=== PATIENT | male | born 1955 | race Caucasian/White ===

== ENCOUNTER 2017-04-02 05:56 | Inpatient (IN) | payer MEDICAID, OTHER ==
[~2017-04-02] VITALS: Ht 177.8 cm; Wt 110.0 kg
[2017-04-02] VITALS (9 sets, daily range): BP systolic 129–169; BP diastolic 62–71; PULSE 67–77; RESP 16–18; TEMP 97.5–98.6; O2SAT 91–96
[~2017-04-02 05:56] MED LIST: ALBU0.63 NEB; AMLO10TA2 PO; ASPI81TA11 PO; CEPH500T PO; CYCL1TAB29 PO; GABA600T PO; HYDR-3516 PO; HYDR50TA3 PO; IPRA17I INH; LABE200T2 PO; LISI40TA PO; PRAV40TA2 PO; SPIRCAP INH; SYMB160A INH; VENTAER INH
[2017-04-02] MEDS ORDERED: SODIUM CHLORID 0.9% 500 ML IV PRN (06:30)
[2017-04-02] MEDS ORDERED: INSULIN HUMAN REGULAR 1,000 UNITS/10 ML VIAL SQ PRN (06:30)
[2017-04-02] MEDS ORDERED: POVIDONE IODINE 5% (ANTISEPSIS KIT) 4 APPLICATIONS EACH NARE PRN (06:30)
[2017-04-02] MEDS ORDERED: METOPROLOL TARTRATE 25 MG TAB PO PRN (06:30)
[2017-04-02] MEDS ORDERED: LACTATED RINGER'S 1000 ML IV PRN (06:30)
[2017-04-02] MEDS ORDERED: CHLORHEXIDINE GLUCONATE 2 % 1 PACK (2 CLOTHS) TOPICAL PRN (06:30)
[2017-04-02] MEDS: PROTAMINE SULFATE 50 MG/5 ML VIAL ONE ×2 (06:36→11:11)
[2017-04-02] MEDS ORDERED: THROMBIN (TOPICAL) 20,000 UNIT SPRAY KIT ONE (06:36)
[2017-04-02] MEDS ORDERED: HEPARIN SODIUM - IV 10,000 UNITS/10 ML VIAL ONE (06:36)
[2017-04-02] MEDS: BUPIVACAINE HCL PF 0.5% 30 ML VIAL ONE ×2 (06:36→11:40)
[2017-04-02] MEDS ORDERED: HEPARIN-NS/PF INJ 1,000 ML ONE (06:37)
--- NOTE | 2017-04-02 06:50 | PD.VS.PN ---
Pre-operative Note Pre-operative diagnosis: chronic type B aortic dissection Planned procedure: L C-SC bypass TEVAR Interval History: Pt has been feeling well since I saw him in clinic. He is appropriately anxious but ready. Labs: pending Blood: T&S Imaging: CTA reviewed. Orders: NPO Kefzol 2g IV OCTOR Post-operative destination: CVICU Operative site marked: Yes Consent: Informed consent has been obtained from Alejandro Robin. I have explained the procedure in detail and discussed the risks, benefits, and potential complications. All questions have been answered. Javy Cherry MD Apr 02, 2017 06:50
--- NOTE | 2017-04-02 07:02 | RADRPT ---
EXAM DATE/TIME: 04/02/2017 06:43 [facility] COMPARISON: No previous studies available for comparison. INDICATIONS : Shortness of breath. Pre-op subclavian bypass. MEDICAL HISTORY : None. SURGICAL HISTORY : None. ENCOUNTER: Initial ACUITY: 1 day PAIN SCORE: 0/10 LOCATION: Bilateral chest FINDINGS: The cardiac silhouette is normal in transverse diameter. The lungs are free of acute parenchymal opac ity. No effusions are identified. The aortic knob is prominent with tortuosity of the descending thor acic aorta. There is mild scoliotic deformity convex to the right. CONCLUSION: 1. No acute cardiopulmonary disease. Alejandro Lazcano MD on April 02, 2017 at 6:59 Board Certified Radiologist. This report was verified electronically.
[2017-04-02] MEDS ORDERED: MIDAZOLAM HCL 2 MG/2 ML VIAL ONE (07:19)
[2017-04-02] MEDS ORDERED: RESP: ALBUTEROL 0.63 MG/3 ML NEB (PRN) NEB (07:30)
[2017-04-02] MEDS ORDERED: IPRATROPIUM BROMIDE 17 MCG/ACT 12.9 GM INHALER INH PRN (07:30)
--- NOTE | 2017-04-02 07:41 | PD.RAD ---
Post Procedure Progress Note Pre Procedure Diagnosis: (1) Thoracic aortic aneurysm Post Procedure Diagnosis: (1) Thoracic aortic aneurysm Procedure Date: Apr 02, 2017 Supervising Radiologist: Mansoor Solo Estimated blood loss: none Anesthesia: Local, Conscious Sedation Plan of Activity Patient to Unit: Other Patient Condition: Good Additional Comments: Lumbar drain placed without difficulty. Neuro exam unchanged post drain placement. Catheter placed at L3 due to degenerative changes at L4 Catheter tip is at T10. Clear CSF draining for the tubing. Full dictated report to follow. See PACS Report for procedural detail/treatment Mansoor Solo MD Apr 02, 2017 07:41
[2017-04-02] MEDS ORDERED: NALOXONE HCL 0.4 MG/ML AMP ONE (07:43)
[2017-04-02] MEDS ORDERED: NITROGLYCERIN-D5W 50 MG/250 ML 250 ML ONE (07:45)
[2017-04-02] MEDS ORDERED: ALBUTEROL SULFATE 90 MCG/ACT HFA 8 GM INHALER INH PRN (08:00)
[2017-04-02] MEDS ORDERED: ceFAZolin 2 GM PREMIX 50 ML ONE (08:22)
[2017-04-02] MEDS: ACETAMINOPHEN 1000 MG/100 ML 100 ML IV ONE ×2 (08:24→10:00)
[2017-04-02] MEDS: methylPREDNISolone SOD SUCC 125 MG/2 ML VIAL ONE ×2 (08:24→08:50)
[2017-04-02] MEDS ORDERED: RESP: IPRATROPIUM 0.5 MG/2.5 ML NEB NEB PRN (09:00)
[2017-04-02] MEDS: HYDROCHLOROTHIAZIDE 50 MG TAB PO SCH (09:00)
[2017-04-02] MEDS: FAMOTIDINE 20 MG TAB PO SCH ×2 (09:00→21:41)
[2017-04-02] MEDS: TIOTROPIUM BROMIDE 18 MCG INH INH SCH (09:00)
[2017-04-02] MEDS: DOCUSATE SODIUM 100 MG CAP PO SCH ×2 (09:00→21:41)
[2017-04-02] MEDS: BUDESONIDE-FORMOTEROL 160/4.5 MCG INHALER INH SCH ×2 (09:00→23:47)
[2017-04-02] MEDS ORDERED: IOHEXOL IV ONE ×2 (09:00→13:00)
--- NOTE | 2017-04-02 09:33 | RADRPT ---
EXAM DATE/TIME: 04/02/2017 06:59 [facility] COMPARISON: No previous studies available for comparison. INDICATIONS : Patient with AAA in need of lumbar drain placement prior to surgery. MEDICAL HISTORY : 1.AAA 2.Aortic dissection 3.Arthritis 4.Asthma 5.Benign essential hypertension 6.Chronic obstructive lung disease 7.GERD 8.Hyperlipidemia 9.Hypoxemia 10.Knee pain 11.Morbid obesity 12.Sleep apnea 13.Prediabetes SURGIAL HISTORY : 1.Hernia repair ENCOUNTER: Initial ACUITY: 1 month PAIN SCORE: 6/10 LOCATION: Upper chest. LUMBAR PUNCTURE TIME: 0728 hours FLUORO TIME: 2.4 minutes IMAGE SERIES: 1 SEDATION TIME: 8 minutes LEVEL: Tip of lumbar drain was placed at T10 MEDICATION(S): 1.) 2 mg midazolam (Versed) IV 2.) 100 mcg fentanyl (Sublimaze) IV DEVICE(S): 1.) 5 Azeri lumbar drain catheter PROCEDURE : 1. Fluoroscopically guided lumbar drain placement. 2. Conscious sedation with continuous EKG and oximetry monitoring. Clinical history: The patient is a 62-year-old with a thoracic aortic aneurysm. The patient is scheduled for endograft repair of the aneurysm. We are asked to place a lumbar drain preoperatively. The risks, benefits and alternatives to the procedure were explained and verbal and written consent w as obtained. The site was prepped in sterile fashion. Full sterile technique was used, including ca p, mask, sterile gloves and gown and a large sterile sheet. Hand hygiene and 2% chlorhexidine and/or betadine/alcohol prep was utilized per protocol for cutaneous antisepsis. The skin and subcutaneous tissues were infiltrated with local anesthetic solution. The patient's back was examined with fluoroscopy. There was considerable degenerative change at the L 4 level. The decision was made to place the drain at the level of L3. With fluoroscopic guidance the lumbar thecal sac was punctured with a 14 gauge Touhy needle and a lum bar drain was placed with its tip at the level of T10 and the catheter was sutured in place. CSF was identified returning from the catheter at the termination of the procedure. Conscious sedation was performed with the prescribed dosages and duration as above in the presence of an independent trained radiology nurse to assist in the monitoring of the patient. EKG and oximetry remained stable throughout the procedure. The patient tolerated the procedure well and there were n o complications. The patient was sent to post anesthesia recovery in stable condition. CONCLUSION: Uncomplicated lumbar drain placement as above. The tip of the catheter is at the level of T10. The karla flood's lower extremity neurologic exam was normal post procedure. Mansoor Solo MD on April 02, 2017 at 9:30 Board Certified Radiologist. This report was verified electronically.
[2017-04-02 09:44] LABS: HEMATOCRIT 40.9 % (39.0-51.0); MEAN CELL VOLUME 89.3 FL (80.0-100.0); MEAN CORPUSCULAR HGB CONC 33.6 % (32.0-36.0); PLATELET COUNT 179 TH/MM3 (150-450); RED BLOOD COUNT 4.58 MIL/MM3 (4.50-5.90); RED CELL DISTRIBUTION WIDTH 12.6 % (11.6-17.2); REVIEW FLAG FINAL; WHITE BLOOD COUNT 7.9 TH/MM3 (4.0-11.0)
[2017-04-02] MEDS: HEPARIN SODIUM - IV 10,000 UNITS/10 ML VIAL ONE (09:46)
[2017-04-02 10:17] LABS: BICARBONATE 30.2 MEQ/L (21.0-32.0); POTASSIUM 3.2 MEQ/L (3.5-5.1)
[2017-04-02] MEDS ORDERED: PROTAMINE SULFATE 50 MG/5 ML VIAL IV PUSH ONE (11:11)
[2017-04-02] MEDS ORDERED: PROTAMINE SULFATE 50 MG/5 ML VIAL ONE (11:12)
--- NOTE | 2017-04-02 12:03 | HHI.PR ---
Immediate Post Op Note Procedure Date: Apr 02, 2017 Pre Op Diagnosis: chronic type B aortic dissection Post Op Diagnosis: chronic type B aortic dissection Surgeon: Javy Cherry Child Care Supervisor(s): Shena Carrasco MS4 Procedure: 1. L C-SC bypass with 8mm Dacron 2. TEVAR involving L SCA (Valiant [id number]) 3. L SCA embolization 4. IVUS of aorta 5. L PROFESSOR OF THEATER Perclose 6. R PROFESSOR OF THEATER Angioseal Findings: successful exclusion and no FL filling in thoracic aorta Additional Information: + Doppler signals B LE at conclusion of case Complications: none apparent Specimen(s) removed: none Estimated blood loss: 50mL Anesthesia: General Drains: None Fluids: 2700mL IVF Urinary Output (mLs): 425 Patient to: CVICU Patient Condition: Fair Implant/Devices: SEE IMPLANT LOG (if applicable) Date/Time of Procedure: SEE SURGICAL CARE RECORD Javy Cherry MD Apr 02, 2017 12:03
[2017-04-02] MEDS: ASPIRIN EC 81 MG TABEC PO SCH (13:00)
[2017-04-02] MEDS: D5-1/2 NS + KCL 20 MEQ INJ 1,000 ML IV SCH ×2 (13:06→23:28)
[2017-04-02] MEDS: MORPHINE SULFATE 4 MG/ML INJ IV PUSH PRN ×2 (13:29→21:46)
[2017-04-02 13:52] LABS: AUTOMATED NEUTROPHIL # 10.8 TH/MM3 (1.8-7.7); BASOPHIL % 0.3 % (0.0-2.0); EOSINOPHIL % 0.3 % (0.0-4.0); HEMO FLAGS DIFF FINAL; LYMPH % 9.5 % (9.0-44.0); LYMPHOCYTE # 1.2 TH/MM3 (1.0-4.8); MEAN CELL VOLUME 89.8 FL (80.0-100.0); MEAN CORPUSCULAR HEMOGLOBIN 30.4 PG (27.0-34.0); MEAN CORPUSCULAR HGB CONC 33.8 % (32.0-36.0); MONO % 4.1 % (0.0-8.0); NEUT % 85.8 % (16.0-70.0); PLATELET COUNT 166 TH/MM3 (150-450); RED BLOOD COUNT 4.45 MIL/MM3 (4.50-5.90); RED CELL DISTRIBUTION WIDTH 12.7 % (11.6-17.2); WHITE BLOOD COUNT 12.6 TH/MM3 (4.0-11.0)
[2017-04-02 14:11] LABS: BICARBONATE 31.1 MEQ/L (21.0-32.0); POTASSIUM 3.7 MEQ/L (3.5-5.1)
[2017-04-02] MEDS: NALOXONE 4 MG/D5W 246 ML ADMIX IV SCH ×4 (14:17→23:47)
--- NOTE | 2017-04-02 16:14 | RADRPT ---
EXAM DATE/TIME: 04/02/2017 15:30 [facility] COMPARISON: CHEST SINGLE AP, April 02, 2017, 6:43. INDICATIONS : Post operative chest. Post TEVAR. MEDICAL HISTORY : Arthritis. Gastroesophageal reflux disease. Asthma. AAA SURGICAL HISTORY : Hernia repair. ENCOUNTER: Initial ACUITY: 1 day PAIN SCORE: Non-responsive. LOCATION: Bilateral chest FINDINGS: 3 frontal views of the chest demonstrate a normal-sized cardiac silhouette. There is an endoluminal s tent graft overlying the ascending aorta and aortic arch. Embolization coils overlie the superior asp ect of the aortic arch. Lungs are underinflated with mild atelectasis at the bases. No effusion, cons olidation, or pneumothorax is visualized. Bones demonstrate no acute finding. CONCLUSION: Endoluminal stent graft now overlies the ascending aorta and arch with embolization coils overlying t he superior arch region. Elliott Dumas MD on April 02, 2017 at 16:11 Board Certified Radiologist. This report was verified electronically.
--- NOTE | 2017-04-02 16:31 | PD.CONS ---
[facility] Service Critical Care Medicine Consult Requested By Dr. Cherry Reason for Consult perioperative management of comorbidities Primary Care Physician Non-Staff History of Present Illness This is a 62yM with history of hypertension, CAD and known prior type B dissection which was medically managed but for which the patient had continued chest pain despite maximal medical therapy. He underwent elective endovascular thoracic aortic aneurysm repair (TEVAR) with extra-anatomic left carotid- subclavian bypass. His intra-operative course was uncomplicated and included 2700 mL crystalloid for an EBL of ~50mL and UOP of 425mL. He arrives to the CVICU extubated, arousing from anesthesia, in stable condition. Due to the patient's somnolence arousing from anesthesia, a complete ROS is unobtainable. The patient did deny chest pain, shortness of breath, weakness of his extremities. Review of Systems ROS Limitations: Altered Mental Status ROS arousing from anesthesia. Past Family Social History Allergies: Coded Allergies: No Known Allergies (Unverified , 04/02/17) Past Medical History A complete past history is unobtainable secondary to the clinical condition of the patient. Please refer to Dr. Cherry's admission/clinic H&P for further details. hypertension Type B thoracic dissection Past Surgical History complete PSHx unobtainable secondary to the clinical condition of the patient Reported Medications Aspirin EC (Aspirin) 81 Mg Tabdr 81 Mg PO DAILY Gabapentin 600 Mg Tab 600 Mg PO HS Atrovent HFA 12.9 GM Inh (Ipratropium Pengilly) 17 Mcg/Actuation Aer 2 Puff INH DAILY PRN Symbicort Inh (Budesonide/Formoterol Fumarate) 160-4.5 Mcg/Act Aero 1 Puff INH Q12HR Spiriva Handihaler (Tiotropium Inh) 18 Mcg Cap 18 Mcg INH DAILY 1 capsule = 18 mcg Ventolin Hfa 18 GM Inh (Albuterol Sulfate) 90 Mcg/Act Aer 2 Puff INH Q4H PRN Albuterol Neb (Albuterol Sulfate) 0.63 Mg/3 Ml Neb 0.083 Mg NEB DAILY PRN Flexeril (Cyclobenzaprine HCl) 10 Mg Tab 10 Mg PO HS Hydrocodone-Acetaminophen 5-325 mg Tab 1 Tab PO BID PRN Cephalexin 500 Mg Tab 500 Mg PO Q6H Pravastatin 40 Mg Tab 40 Mg PO HS Hydrochlorothiazide 50 Mg Tab 50 Mg PO DAILY Lisinopril 40 Mg Tab 40 Mg PO DAILY Amlodipine (Amlodipine Besylate) 10 Mg Tab 10 Mg PO HS Labetalol (Labetalol HCl) 200 Mg Tab 400 Mg PO TID Active Ordered Medications See MAR Family History reviewed and found to be noncontributory to his acute illness. Social History reviewed in the chart. unobtainable from the patient due to arousing from anesthesia. please refer to Dr. Cherry's H&P for further details. Physical Exam Vital Signs Vital Signs Date Time Temp Pulse Resp B/P (MAP) Pulse Ox O2 Delivery O2 Flow Rate FiO2 04/02/17 16:09 95 Nasal Cannula 4.00 04/02/17 16:07 67 04/02/17 15:04 97.6 69 16 140/62 (88) 96 04/02/17 13:38 73 04/02/17 13:37 91 Nasal Cannula 5.00 04/02/17 13:35 16 04/02/17 13:35 97.5 72 16 140/62 (88) 91 04/02/17 07:56 Nasal Cannula 3 04/02/17 06:52 98.0 71 20 133/79 (97) 93 Physical Exam GENERAL: Middle-aged male, lying in bed, arousing from anesthesia HEENT: Normocephalic. Atraumatic. Pupils equal, round, reactive, conjugate. Mucous membranes are moist NECK: Trachea is midline. There is no JVD. Incision over left anterior neck is clean, dry, intact with Dermabond. No evidence of hematoma CHEST: Nasal cannula oxygen. Unlabored. Equal chest rise. CARDIOVASCULAR: Normal rate, regular rhythm. Blood pressure is 142 systolic on my evaluation. ABDOMEN: Soft, nontender, nondistended. No guarding. MUSCULOSKELETAL: Pulses 2+. No peripheral edema. Bilateral groin sites without evidence of hematoma, dressing intact NEUROLOGICAL: RASS -2. Arousing from anesthesia. Moves all extremities. Bilateral lower extremity strength 5/5. Laboratory Laboratory Tests Test 04/02/17 09:00 04/02/17 13:00 04/02/17 13:35 White Blood Count 7.9 12.6 Red Blood Count 4.58 4.45 Hemoglobin 13.8 13.5 Hematocrit 40.9 40.0 Mean Corpuscular Volume 89.3 89.8 Mean Corpuscular Hemoglobin 30.0 30.4 Mean Corpuscular Hemoglobin Concent 33.6 33.8 Red Cell Distribution Width 12.6 12.7 Platelet Count 179 166 Mean Platelet Volume 9.2 9.3 Blood Urea Nitrogen 13 13 Creatinine 0.67 0.81 Random Glucose 128 157 Calcium Level 8.8 7.6 Sodium Level 138 138 Potassium Level 3.2 3.7 Chloride Level 100 100 Carbon Dioxide Level 30.2 31.1 Anion Gap 8 7 Estimat Glomerular Filtration Rate 121 97 Neutrophils (%) (Auto) 85.8 Lymphocytes (%) (Auto) 9.5 Monocytes (%) (Auto) 4.1 Eosinophils (%) (Auto) 0.3 Basophils (%) (Auto) 0.3 Neutrophils # (Auto) 10.8 Lymphocytes # (Auto) 1.2 Monocytes # (Auto) 0.5 Eosinophils # (Auto) 0.0 Basophils # (Auto) 0.0 CBC Comment DIFF FINAL Differential Comment Result Diagram: 04/02/17 1300 04/02/17 1335 Imaging Last Impressions Chest X-Ray 04/02/17 0632 Signed Impressions: Service Date/Time: Sunday, April 02, 2017 06:43 - CONCLUSION: 1. No acute cardiopulmonary disease. Alejandro Lazcano MD Lumbar Puncture Fluoroscopy 04/02/17 0000 Signed Impressions: Service Date/Time: Sunday, April 02, 2017 06:59 - CONCLUSION: Uncomplicated lumbar drain placement as above. The tip of the catheter is at the level of T10. The patient's lower extremity neurologic exam was normal post procedure. Mansoor Solo MD Assessment and Plan Assessment and Plan Assessment: 62-year-old male postop day 0 status post TEVAR with extra-anatomic left carotid-subclavian bypass. Will continue to observe patient in an ICU setting with frequent neurovascular checks. Plan: s/p TEVAR with carotid-subclavian bypass - frequent neurovascular checks - goal SBP 140 - 180 - continue Lumbar Drain @ 10 cmH2O open - ok for SQH. hold additional anticoagulation - strict I/Os. close monitoring of uop. Hypertension - hold home antihypertensives - permissive hypertension goal sbp 140 - 180 Hyperlipidemia - restart home statin Chronic pain - hold gabapentin for now. would plan to restart tomorrow, but would have low threshold to restart tonight if he has increased pain - hold Flexeril Critical care will continue to follow along as long as patient remains in the CVICU. Code Status Full Code Discussed Condition With patient, bedside RN, Seun Avina MD Apr 02, 2017 16:31
[2017-04-02] MEDS: HYDROmorphone HCL 2 MG TAB PO PRN (20:17)
[2017-04-02] MEDS ORDERED: PRAVASTATIN SOD 40 MG TAB PO SCH (21:00)
[2017-04-02] MEDS: GABAPENTIN 300 MG CAP PO SCH (21:41)
[2017-04-02] MEDS: CYCLOBENZAPRINE HCL 10 MG TAB PO SCH (21:41)
[2017-04-02] MEDS: ATORVASTATIN 40 MG TAB PO SCH (21:41)
--- NOTE | 2017-04-02 21:53 | EKG ---
Date Performed: 04/02/2017 Time Performed: 06:54:02 PTAGE: 62 years EKG: Sinus rhythm NORMAL ECG NO PREVIOUS TRACING DOCTOR: Jonah Dykes Interpretating Date/Time 04/02/2017 21:52:02
[2017-04-03] VITALS (11 sets, daily range): BP systolic 147–179; BP diastolic 62–93; PULSE 77–106; RESP 15–20; TEMP 97.7–100.4; O2SAT 93–97
[2017-04-03] MEDS: MORPHINE SULFATE 4 MG/ML INJ IV PUSH PRN (01:16)
[2017-04-03 04:57] LABS: AUTOMATED NEUTROPHIL # 15.7 TH/MM3 (1.8-7.7); BASOPHIL % 0.2 % (0.0-2.0); HEMATOCRIT 41.5 % (39.0-51.0); HEMO FLAGS DIFF FINAL; LYMPH % 4.9 % (9.0-44.0); LYMPHOCYTE # 0.9 TH/MM3 (1.0-4.8); MEAN CELL VOLUME 88.7 FL (80.0-100.0); MEAN CORPUSCULAR HEMOGLOBIN 30.6 PG (27.0-34.0); MEAN CORPUSCULAR HGB CONC 34.5 % (32.0-36.0); NEUT % 83.9 % (16.0-70.0); PLATELET COUNT 175 TH/MM3 (150-450); RED BLOOD COUNT 4.68 MIL/MM3 (4.50-5.90); RED CELL DISTRIBUTION WIDTH 12.6 % (11.6-17.2); WHITE BLOOD COUNT 18.7 TH/MM3 (4.0-11.0)
[2017-04-03 05:26] LABS: BICARBONATE 30.3 MEQ/L (21.0-32.0); POTASSIUM 3.5 MEQ/L (3.5-5.1)
--- NOTE | 2017-04-03 05:57 | HHI.CCPN ---
Subjective Remarks/Hospital Course Hospital Course: This is a 62yM with history of hypertension, CAD and known prior type B dissection which was medically managed but for which the patient had continued chest pain despite maximal medical therapy. He underwent elective endovascular thoracic aortic aneurysm repair (TEVAR) with extra-anatomic left carotid- subclavian bypass. His intra-operative course was uncomplicated and included 2700 mL crystalloid for an EBL of ~50mL and UOP of 425mL. He arrives to the CVICU extubated, arousing from anesthesia, in stable condition. Due to the patient's somnolence arousing from anesthesia, a complete ROS is unobtainable. The patient did deny chest pain, shortness of breath, weakness of his extremities. Subjective: 04/03: doing well. patient states: "I feel rough, but better." good uop. spinal drain with clear CSF. patient endorses improving chest pain (same pain he has had for months) but no other symptoms. says he is hungry. Objective Vital Signs Date Time Temp Pulse Resp B/P (MAP) Pulse Ox O2 Delivery O2 Flow Rate FiO2 04/03/17 04:00 95 Nasal Cannula 3.00 04/03/17 03:36 81 04/03/17 03:35 98.7 18 160/62 (94) 147/78 (101) Result Diagram: 04/03/17 0435 04/03/17 0435 Imaging Last Impressions Chest X-Ray 04/02/17 0632 Signed Impressions: Service Date/Time: Sunday, April 02, 2017 06:43 - CONCLUSION: 1. No acute cardiopulmonary disease. Alejandro Lazcano MD Lumbar Puncture Fluoroscopy 04/02/17 0000 Signed Impressions: Service Date/Time: Sunday, April 02, 2017 06:59 - CONCLUSION: Uncomplicated lumbar drain placement as above. The tip of the catheter is at the level of T10. The patient's lower extremity neurologic exam was normal post procedure. Mansoor Solo MD Objective Remarks GENERAL: Middle-aged male, lying in bed, no acute distress. HEENT: Normocephalic. Atraumatic. Pupils equal, round, reactive, conjugate. Mucous membranes are moist NECK: Trachea is midline. There is no JVD. Incision over left anterior neck is clean, dry, intact with Dermabond. No evidence of hematoma CHEST: Nasal cannula oxygen. Unlabored. Equal chest rise. CARDIOVASCULAR: Normal rate, regular rhythm. Blood pressure is 180 systolic on my evaluation. ABDOMEN: Soft, nontender, nondistended. No guarding. MUSCULOSKELETAL: Pulses 2+. No peripheral edema. Bilateral groin sites without evidence of hematoma, dressing intact NEUROLOGICAL: RASS 0. awake and alert. follows commands. Moves all extremities. Bilateral lower extremity strength 5/5. A/P Assessment and Plan Assessment: 62-year-old male postop day 1 status post TEVAR with extra-anatomic left carotid-subclavian bypass. Will continue to observe patient in an ICU setting with frequent neurovascular checks. Clinically doing well. Plan: s/p TEVAR with carotid-subclavian bypass - frequent neurovascular checks - goal SBP 140 - 180 - continue Lumbar Drain @ 10 cmH2O. will discuss with vascular about challenging drain. - ok for SQH. hold additional anticoagulation - strict I/Os. close monitoring of uop. - will plan to remove dillon catheter today. - advance diet as tolerated. Hypertension - hold home antihypertensives - permissive hypertension goal sbp 140 - 180 Hyperlipidemia - home statin Chronic pain - restart home gabapentin. - hold Flexeril Critical care will continue to follow along as long as patient remains in the CVICU. Seun Steven MD Apr 03, 2017 05:57
--- NOTE | 2017-04-03 07:39 | PD.VS.PN ---
Subjective POD #: 1 Procedure(s): L C-SC bypass, TEVAR for cTBAD Subjective/Hospital Course doing well, neuro intact. c/o neck sore but no LE complaints Objective Vitals/I&O Date Time Temp Pulse Resp B/P (MAP) Pulse Ox O2 Delivery O2 Flow Rate FiO2 04/03/17 07:14 97.7 77 16 179/63 (101) 96 154/75 (101) 04/03/17 07:13 77 04/03/17 06:25 18 04/03/17 04:00 95 Nasal Cannula 3.00 04/03/17 03:36 81 04/03/17 03:35 98.7 78 18 160/62 (94) 95 147/78 (101) 04/03/17 03:00 95 Nasal Cannula 3.00 04/03/17 01:29 18 04/03/17 00:00 95 Nasal Cannula 4.00 04/02/17 23:35 77 04/02/17 23:00 98.6 74 18 168/63 (98) 96 129/70 (89) 04/02/17 21:40 96 Nasal Cannula 3.00 04/02/17 21:25 18 04/02/17 20:00 96 Nasal Cannula 4.00 04/02/17 20:00 74 04/02/17 19:00 97.8 74 18 169/71 (103) 96 04/02/17 16:09 95 Nasal Cannula 4.00 04/02/17 16:07 67 04/02/17 15:04 97.6 69 16 140/62 (88) 96 04/02/17 13:38 73 04/02/17 13:37 91 Nasal Cannula 5.00 04/02/17 13:35 97.5 72 16 140/62 (88) 91 04/02/17 07:56 Nasal Cannula 3 04/03/17 04/03/17 04/03/17 07:00 15:00 23:00 Intake Total 2201 ml 625 ml Output Total 3163 ml Balance -962 ml 625 ml Exam: Neuro intact palapble femoral pulses L neck incision c/d/i palpable L UE pulse Laboratory Laboratory Tests Test 04/02/17 09:00 04/02/17 13:00 04/02/17 13:35 04/03/17 04:35 White Blood Count 7.9 12.6 18.7 Red Blood Count 4.58 4.45 4.68 Hemoglobin 13.8 13.5 14.3 Hematocrit 40.9 40.0 41.5 Mean Corpuscular Volume 89.3 89.8 88.7 Mean Corpuscular Hemoglobin 30.0 30.4 30.6 Mean Corpuscular Hemoglobin Concent 33.6 33.8 34.5 Red Cell Distribution Width 12.6 12.7 12.6 Platelet Count 179 166 175 Mean Platelet Volume 9.2 9.3 9.0 Blood Urea Nitrogen 13 13 8 Creatinine 0.67 0.81 0.51 Random Glucose 128 157 141 Calcium Level 8.8 7.6 8.3 Sodium Level 138 138 137 Potassium Level 3.2 3.7 3.5 Chloride Level 100 100 99 Carbon Dioxide Level 30.2 31.1 30.3 Anion Gap 8 7 8 Estimat Glomerular Filtration Rate 121 97 165 Neutrophils (%) (Auto) 85.8 83.9 Lymphocytes (%) (Auto) 9.5 4.9 Monocytes (%) (Auto) 4.1 11.0 Eosinophils (%) (Auto) 0.3 0.0 Basophils (%) (Auto) 0.3 0.2 Neutrophils # (Auto) 10.8 15.7 Lymphocytes # (Auto) 1.2 0.9 Monocytes # (Auto) 0.5 2.0 Eosinophils # (Auto) 0.0 0.0 Basophils # (Auto) 0.0 0.0 CBC Comment DIFF FINAL DIFF FINAL Differential Comment Assessment and Plan Plan POD#1 s/p L C-SC/TEVAR. Neuro intact and looks great 1. Continue to hold antihypertensives for permissive hypertension 2. clamp spinal drain at 1000 today and continue q1h neuro checks 3. hold sub q heparin tonight in anticipation of drain removal tomorrow 4. D/C Fuentes 5. Reg diet Discharge Planning likely out of CVICU tomorrow after drain removed home 2 days Javy Cherry MD Apr 03, 2017 07:39
[2017-04-03] MEDS: HYDROmorphone HCL 2 MG TAB PO PRN ×2 (08:11→17:41)
[2017-04-03] MEDS: FAMOTIDINE 20 MG TAB PO SCH ×2 (08:22→21:05)
[2017-04-03] MEDS: TIOTROPIUM BROMIDE 18 MCG INH INH SCH (08:22)
[2017-04-03] MEDS: BUDESONIDE-FORMOTEROL 160/4.5 MCG INHALER INH SCH ×2 (08:22→16:11)
[2017-04-03] MEDS: ASPIRIN EC 81 MG TABEC PO SCH (08:22)
[2017-04-03] MEDS: DOCUSATE SODIUM 100 MG CAP PO SCH ×2 (08:22→21:05)
--- NOTE | 2017-04-03 08:46 | MP ---
cc: USHA CHERRY MD DATE OF SURGERY 04/02/2017 PREOPERATIVE DIAGNOSIS Chronic type B aortic dissection with aneurysmal degeneration and pain. POSTOPERATIVE DIAGNOSIS Chronic type B aortic dissection with aneurysmal degeneration and pain. PROCEDURE 1. Left carotid subclavian bypass with 8-mm Dacron 2. Thoracic endovascular aortic stent involving left subclavian artery. 3. Intravascular ultrasound of the aorta. 4. Left subclavian artery embolization. 5. Left common femoral artery Perclose. 6. Right common femoral artery Angio-Seal. ATTENDING SURGEON Usha Cherry MD ANESTHESIA General INDICATIONS Mrs. Robin is a 62-year gentleman with a chronic type B aortic dissection and recurrent chest pain. He has aneurysmal degeneration of the dissection and after the thorough discussion was held with the patient, he was offered repair. DESCRIPTION OF PROCEDURE Informed consent was obtained from the patient. He was taken to the operating room, placed supine on the operating table and an appropriate time-out was taken to ensure the patient's identity, operative site and planned procedure. The administration of two grams of Ancef was initiated prior to the skin incision and will be discontinued after a single preoperative dose. Everyone in the room agreed with the time-out and we proceeded. He had a spinal drain placed by interventional radiology prior to the procedure and it was working well. His left neck and bilateral groins were prepped and draped. An incision was made above the patient's left collarbone, carried down through the subcutaneous tissue with electrocautery. The platysma was divided. The scalene fat pad was mobilized superolaterally and the anterior scalene muscle was easily identified deep in the caudal aspect of the incision. The lateral border of the anterior scalene muscle was divided and the subclavian artery was identified and encircled with a Vesseloop. The jugular vein was identified and dissected free and encircled with a Vesseloop and the common carotid artery was identified on the medial aspect of the incision and also encircled with a Vesseloop. We then turned our attention toward arterial access. A 21 gauge micropuncture needle was used to access the left common femoral artery. This was exchanged using Seldinger technique with a micropuncture sheath through which a 0.05 Storq wire was then advanced and the micropuncture sheath was exchanged for a 5-Azerbaijani sheath which was used to dilate the skin and subcutaneous tissue to perform arteriotomy. Two Perclose ProGlide sutures were inserted and tagged. These were not tied down and will be used later. An 8-Azerbaijani sheath was introduced. At the right common femoral artery, a 21-gauge micropuncture needle was used to access the right common femoral artery. This was exchanged using Seldinger technique for the micropuncture sheath through which a 0.035 Storq wire was introduced. The micropuncture was exchanged for a 5-Azerbaijani sheath. At this point, the patient systemically heparinized and throughout the remainder of the case, the ACT was kept greater than 250. Proximal and distal control of the subclavian artery were obtained with profunda clamps and a longitudinal arteriotomy was made with an 11 blade and extended with Leonard scissors. An 8-mm Dacron was brought up on the field, spatulated and sewn end-to-side with running 5-0 Prolene suture. At the completion, it was flushed and noted to be hemostatic. The clamps were released and Surgicel was placed around the anastomosis. The graft was then tunneled underneath the jugular with pharmacological augmentation of the blood pressure. Proximal and distal control of the common carotid artery was obtained with profunda clamps and a longitudinal arteriotomy was made with an 11 blade and extended with Leonard scissors. The graft was cut to the appropriate length and sewn end-to-side with running 5-0 Prolene suture. At the completion, it was flushed and noted to be hemostatic. All the clamps were released. There was a nice pulse in the distal common carotid artery. The neck was temporarily packed and attention was turned towards performing the TVAR. The Storq wire was advanced into the groins up into the ascending aorta and over the left and the Storq wire catheter was then passed and the Storq was exchanged for a Lunderquist. Over the right hand Storq wire, a marker flush pigtail catheter was passed. An intravascular ultrasound catheter was placed over the wire and through the sheath and images of the aorta and iliac arteries were obtained. This confirmed that both groin accesses were in the true lumen. Additionally, the common carotid artery was identified and the diameter was determined. Based on the diameter obtained during the IVUS measurements, a 38 x 200 graft was selected. The IVUS catheter was removed. The 8-Azerbaijani sheath was removed. Nishant dilator was used to dilate the skin and subcutaneous traction arteriotomy and the main device which with a Medtronic Valiant 38 x 200 graft was inserted. Interval angiography was performed to locate the common carotid artery and a graft was deployed without difficulty. The delivery system of the graft was removed and over the wire, a 20-Azerbaijani Sentrant sheath was then placed. A Kannactq wire was advanced through the PEG on the right-hand side and the pigtail catheter was then pulled back to the perivisceral aorta and advanced through the lumen of the graft. A completion angiogram showed excellent result with only mild narrowing of the distal thoracic aorta. Over the Lunderquist wire on the left-hand side, a Reliant balloon was then advanced and the distal aspect of the graft was ballooned without difficulty. The completion angiogram showed an excellent result The wire, catheter and sheath were removed from the left groin. Perclose was tied down and hemostasis was achieved in the groin. There were Doppler signals in the feet. The wire, catheter and sheath were removed from the right groin and the groin was closed with Angio-Seal. Hemostasis was achieved in the groins and the heparin was reversed with protamine. The neck wound was then reopened and a 21 gauge micropuncture needle was used to access the distal aspect of the carotid subclavian bypass down near the subclavian anastomosis. This was exchanged using Seldinger technique for the micropuncture sheath through which a 0.035 Glidewire was introduced. The micropuncture sheath was exchanged for a 4-Azerbaijani sheath. A 4-Azerbaijani 0.038 Berenstein catheter was then placed to the proximal aspect of the subclavian artery and coils were used to embolize the proximal left subclavian artery. The completion angiogram showed excellent result without any back filling of the thoracic aortic false lumen. The wire, catheter and sheath were removed and the graftotomy was closed with a 6-0 Prolene suture. The neck wound was irrigated, made hemostatic and closed with 2-0 Polysorb, 3-0 Polysorb and 4-0 Monocryl. The sponge and needle counts were correct at the end of case. I was present, scrubbed and performed the entire procedure. MD BALBIR Redman/VANESSA :14 PM /8:20 AM
[2017-04-03] MEDS ORDERED: HEPARIN SODIUM - SQ 10,000 UNITS/ML VIAL SQ SCH (11:30)
[2017-04-03] MEDS: CYCLOBENZAPRINE HCL 10 MG TAB PO SCH (21:05)
[2017-04-03] MEDS: GABAPENTIN 300 MG CAP PO SCH (21:05)
[2017-04-03] MEDS: ATORVASTATIN 40 MG TAB PO SCH (21:05)
[2017-04-04] VITALS (20 sets, daily range): BP systolic 138–165; BP diastolic 67–85; PULSE 83–101; RESP 15–19; TEMP 98.3–99.7; O2SAT 94–99
--- NOTE | 2017-04-04 06:00 | PD.VS.PN ---
Subjective POD #: 2 Procedure(s): L C-SC bypass, TEVAR for cTBAD Subjective/Hospital Course doing well, neuro intact. c/o neck sore but no LE complaints OOB and in chair this morning Objective Vitals/I&O Date Time Temp Pulse Resp B/P (MAP) Pulse Ox O2 Delivery O2 Flow Rate FiO2 04/04/17 03:15 98.9 83 15 159/83 (108) 96 165/67 (99) 04/04/17 03:15 84 04/04/17 03:15 96 Nasal Cannula 5.00 Humidified 04/03/17 23:21 96 Nasal Cannula 5.00 Humidified 04/03/17 23:21 98.9 106 15 161/81 (107) 96 171/67 (101) 04/03/17 23:21 87 04/03/17 19:21 93 Nasal Cannula 4.00 Humidified 04/03/17 19:21 100.4 89 16 165/93 (117) 93 178/70 (106) 04/03/17 19:00 87 04/03/17 16:03 95 Nasal Cannula 2.00 04/03/17 15:03 99.8 86 20 165/80 (108) 95 04/03/17 15:02 86 04/03/17 13:08 17 04/03/17 12:02 91 Room Air 04/03/17 11:02 98.0 77 17 169/68 (101) 95 04/03/17 11:02 77 04/03/17 09:44 18 04/03/17 08:09 95 Nasal Cannula 3.00 04/03/17 07:47 97 Nasal Cannula 3.00 04/03/17 07:14 97.7 77 16 179/63 (101) 96 154/75 (101) 04/03/17 07:13 77 Exam: L neck incision ok good LE strength (ambulated to chair) Assessment and Plan Plan POD#2 s/p L C-SC/TEVAR. Neuro intact and looks great 1. D/C spinal drain this morning and then can transfer to CPCU 2. Normalize with goal SBP 160 3. Resume prophylactic heparin after drain out 4. OOB ad deanna after drain out Discharge Planning CPCU today home Th/F Javy Cherry MD Apr 04, 2017 06:00
--- NOTE | 2017-04-04 07:46 | HHI.CCPN ---
Subjective Remarks/Hospital Course Hospital Course: This is a 62yM with history of hypertension, CAD and known prior type B dissection which was medically managed but for which the patient had continued chest pain despite maximal medical therapy. He underwent elective endovascular thoracic aortic aneurysm repair (TEVAR) with extra-anatomic left carotid- subclavian bypass. His intra-operative course was uncomplicated and included 2700 mL crystalloid for an EBL of ~50mL and UOP of 425mL. He arrives to the CVICU extubated, arousing from anesthesia, in stable condition. Due to the patient's somnolence arousing from anesthesia, a complete ROS is unobtainable. The patient did deny chest pain, shortness of breath, weakness of his extremities. Subjective: 04/03: doing well. patient states: "I feel rough, but better." good uop. spinal drain with clear CSF. patient endorses improving chest pain (same pain he has had for months) but no other symptoms. says he is hungry. 04/04: continues to do well. drain clamped yesterday x 24h. neuro intact. OOB and ambulated this AM. tolerating diet. Objective Vital Signs Date Time Temp Pulse Resp B/P (MAP) Pulse Ox O2 Delivery O2 Flow Rate FiO2 04/04/17 07:00 99.1 87 18 140/83 (102) 97 Arterial Line 04/04/17 07:00 Nasal Cannula 5.00 Humidified Intake and Output 04/04/17 04/04/17 04/04/17 07:59 15:59 23:59 Intake Total 480 ml Output Total 800 ml Balance -320 ml Result Diagram: 04/03/17 0435 04/03/17 0435 Imaging Last Impressions Chest X-Ray 04/02/17 0632 Signed Impressions: Service Date/Time: Sunday, April 02, 2017 06:43 - CONCLUSION: 1. No acute cardiopulmonary disease. Alejandro Lazcano MD Lumbar Puncture Fluoroscopy 04/02/17 0000 Signed Impressions: Service Date/Time: Sunday, April 02, 2017 06:59 - CONCLUSION: Uncomplicated lumbar drain placement as above. The tip of the catheter is at the level of T10. The patient's lower extremity neurologic exam was normal post procedure. Mansoor Solo MD Objective Remarks GENERAL: Middle-aged male, lying in bed, no acute distress. HEENT: Normocephalic. Atraumatic. Pupils equal, round, reactive, conjugate. Mucous membranes are moist NECK: Trachea is midline. There is no JVD. Incision over left anterior neck is clean, dry, intact with Dermabond. No evidence of hematoma CHEST: Nasal cannula oxygen. Unlabored. Equal chest rise. CARDIOVASCULAR: Normal rate, regular rhythm. ABDOMEN: Soft, nontender, nondistended. No guarding. MUSCULOSKELETAL: Pulses 2+. No peripheral edema. Bilateral groin sites without evidence of hematoma, dressing intact NEUROLOGICAL: RASS 0. awake and alert. follows commands. Moves all extremities. Bilateral lower extremity strength 5/5. Lumbar drain was removed on my evaluation: single suture was removed. catheter removed easily without resistance or symptoms by patient, tip intact, gauze dressing applied. A/P Assessment and Plan Assessment: 62-year-old male postop day 2 status post TEVAR with extra-anatomic left carotid-subclavian bypass. Clinically continues to improve. stable for transfer out of ICU. Plan: s/p TEVAR with carotid-subclavian bypass - frequent neurovascular checks x 4 hours post drain pull. - liberalize blood pressure goals to normotension. - d/c lumbar drain today. - ok for SQH 4 hours post lumbar drain removal. - reg diet as tolerated. Hypertension - add back anti-hypertensives as needed. currently normotensive. Hyperlipidemia - home statin Chronic pain - home gabapentin and flexoril. Critical care medicine will sign off. please re-consult as needed. Seun Steven MD Apr 04, 2017 07:46
[2017-04-04] MEDS: ASPIRIN EC 81 MG TABEC PO SCH (09:28)
[2017-04-04] MEDS: FAMOTIDINE 20 MG TAB PO SCH ×2 (09:28→20:40)
[2017-04-04] MEDS: DOCUSATE SODIUM 100 MG CAP PO SCH ×2 (09:28→20:40)
[2017-04-04] MEDS: BUDESONIDE-FORMOTEROL 160/4.5 MCG INHALER INH SCH ×2 (10:35→20:40)
[2017-04-04] MEDS: HYDROCHLOROTHIAZIDE 50 MG TAB PO SCH (10:35)
[2017-04-04] MEDS: TIOTROPIUM BROMIDE 18 MCG INH INH SCH (10:37)
[2017-04-04] MEDS: HYDROmorphone HCL 2 MG TAB PO PRN ×2 (16:41→20:03)
[2017-04-04] MEDS: ATORVASTATIN 40 MG TAB PO SCH (20:40)
[2017-04-04] MEDS: CYCLOBENZAPRINE HCL 10 MG TAB PO SCH (20:40)
[2017-04-04] MEDS: GABAPENTIN 300 MG CAP PO SCH (20:41)
[2017-04-05] VITALS (24 sets, daily range): BP systolic 128–147; BP diastolic 68–82; PULSE 87–115; RESP 18–20; TEMP 97.4–99.4; O2SAT 93–96
[2017-04-05] MEDS: HYDROmorphone HCL 2 MG TAB PO PRN ×4 (02:00→20:52)
[2017-04-05] MEDS ORDERED: ONDANSETRON HCL 4 MG/2 ML VIAL IV PUSH PRN (08:30)
[2017-04-05] MEDS: BUDESONIDE-FORMOTEROL 160/4.5 MCG INHALER INH SCH ×2 (09:10→20:49)
[2017-04-05] MEDS: TIOTROPIUM BROMIDE 18 MCG INH INH SCH (09:10)
--- NOTE | 2017-04-05 09:11 | PD.VS.PN ---
Subjective POD #: 3 Procedure(s): L C-SC bypass, TEVAR for cTBAD Subjective/Hospital Course Pt sitting in chair alert in NAD Pt c/o mild nausea this am with left sided neck to shoulder soreness Pt doing well Neuro intact Dressings to lower back and bilat groins dry I/C/D Objective Vitals/I&O Date Time Temp Pulse Resp B/P (MAP) Pulse Ox O2 Delivery O2 Flow Rate FiO2 04/05/17 08:00 105 04/05/17 07:00 95 04/05/17 07:00 97.8 92 20 140/70 (93) 95 04/05/17 07:00 95 Nasal Cannula 3.00 Humidified 04/05/17 06:02 95 04/05/17 05:20 101 04/05/17 04:31 92 04/05/17 03:44 95 Nasal Cannula 3.00 04/05/17 03:44 98.8 91 18 147/80 (102) 95 04/05/17 03:44 95 04/05/17 02:15 93 04/05/17 01:47 94 04/05/17 00:15 99 04/04/17 23:23 99.7 101 19 160/85 (110) 94 04/04/17 23:23 95 Nasal Cannula 3.00 04/04/17 23:23 97 04/04/17 22:00 98 04/04/17 21:00 98 04/04/17 20:00 90 04/04/17 19:30 98 Nasal Cannula 3.00 04/04/17 19:30 95 04/04/17 19:30 98.3 95 18 148/82 (104) 98 04/04/17 18:00 88 04/04/17 17:41 20 04/04/17 17:00 90 04/04/17 16:00 92 04/04/17 15:45 95 Nasal Cannula 3.00 Humidified 04/04/17 15:45 98.4 87 18 146/78 (100) 96 04/04/17 15:00 92 04/04/17 14:42 20 04/04/17 14:00 88 04/04/17 13:00 84 04/04/17 12:00 88 04/04/17 11:27 96 Nasal Cannula 3.00 Humidified 04/04/17 11:24 98.6 87 18 139/76 (97) 97 04/04/17 11:00 92 04/04/17 10:00 86 04/04/17 09:00 88 04/04/17 09:00 94 Nasal Cannula 3.00 04/05/17 04/05/17 04/05/17 07:00 15:00 23:00 Intake Total 480 ml Output Total 825 ml Balance -345 ml Exam: GENERAL: Afebrile 62/M A&OX3 NAD GCS15 SKIN: Warm and dry LE warm with motor intact Palpable R DP Triphasic L DP/PT Lower back/Bilat groin dressings I/C/D w/o swelling or hematoma CARDIOVASCULAR: Regular rate and rhythm without murmurs, gallops, or rubs. RESPIRATORY: No accessory muscle use. GASTROINTESTINAL: Abdomen soft, non-tender, nondistended MUSCULOSKELETAL: No cyanosis, or edema. Incisions: L neck incision intact with surgical glue closure Mild swelling no hematoma Assessment and Plan Assessment: (1) Thoracic aortic aneurysm Plan POD#3 s/p L C-SC/TEVAR. Neuro intact and looks great Mild nausea noted this am Plan Normalize with goal SBP 140-160 PT/OOB ad deanna D/C planning Lizz GARCÍA [facility]/[place] [phone] Discharge Planning D/C planning Sat TULIO w/ Lizz Campuzano Apr 05, 2017 09:11
[2017-04-05] MEDS: FAMOTIDINE 20 MG TAB PO SCH ×2 (09:15→20:52)
[2017-04-05] MEDS: HYDROCHLOROTHIAZIDE 50 MG TAB PO SCH (09:15)
[2017-04-05] MEDS: DOCUSATE SODIUM 100 MG CAP PO SCH ×2 (09:15→20:52)
[2017-04-05] MEDS: ASPIRIN EC 81 MG TABEC PO SCH (09:15)
--- NOTE | 2017-04-05 09:17 | HHI.FF ---
Face to Face Verification Diagnosis: (1) Thoracic aortic aneurysm Physical Therapy Order: Evaluate and Treat, Improve ambulation, Strength and gait training Instructions: Evaluate and treat Activities as tolerated Home Health Nursing Order: Medical education Signs/symptoms of disease process Nursing assessment with vital signs I have seen patient Alejandro Robin on 04/05/17. My clinical findings support the need for the requested home health care services because: Pt medically cleared for D/C will need HHS for optimal post operative surveillance/ education/healing Ltd mobility - disease progression Need for psychosocial assistance High risk of falls I certify that my clinical findings support that this patient is homebound because:Pt medically cleared for D/C will need HHS for optimal post operative surveillance/education/healing Post-op weakness Unsteady gait/balance Lizz Puga Apr 05, 2017 09:17
[2017-04-05] MEDS: DOCUSATE SODIUM 50 MG/SENNA 8.6 MG TAB PO SCH ×2 (10:22→20:52)
[2017-04-05] MEDS: METOPROLOL SUCCINATE 50 MG EXTENDED RELEASE TAB PO SCH (10:22)
[2017-04-05] MEDS: CEPHALEXIN MONOHYDRATE 500 MG CAP PO SCH ×2 (13:36→21:00)
[2017-04-05] MEDS: GABAPENTIN 300 MG CAP PO SCH (20:51)
[2017-04-05] MEDS: CYCLOBENZAPRINE HCL 10 MG TAB PO SCH (20:52)
[2017-04-05] MEDS: ATORVASTATIN 40 MG TAB PO SCH (20:52)
[2017-04-06] VITALS (27 sets, daily range): BP systolic 116–135; BP diastolic 58–83; PULSE 77–107; RESP 16–21; TEMP 97.4–98.7; O2SAT 92–98
[2017-04-06] MEDS: HYDROmorphone HCL 2 MG TAB PO PRN ×4 (06:12→22:22)
[2017-04-06] MEDS: CEPHALEXIN MONOHYDRATE 500 MG CAP PO SCH ×3 (06:12→20:20)
[2017-04-06] MEDS: METOPROLOL SUCCINATE 50 MG EXTENDED RELEASE TAB PO SCH (08:25)
[2017-04-06] MEDS: FAMOTIDINE 20 MG TAB PO SCH ×2 (08:25→20:19)
[2017-04-06] MEDS: DOCUSATE SODIUM 50 MG/SENNA 8.6 MG TAB PO SCH ×2 (08:25→20:19)
[2017-04-06] MEDS: DOCUSATE SODIUM 100 MG CAP PO SCH ×2 (08:25→20:18)
[2017-04-06] MEDS: BUDESONIDE-FORMOTEROL 160/4.5 MCG INHALER INH SCH ×2 (08:25→20:20)
[2017-04-06] MEDS: ASPIRIN EC 81 MG TABEC PO SCH (08:25)
[2017-04-06] MEDS: HYDROCHLOROTHIAZIDE 50 MG TAB PO SCH (08:25)
[2017-04-06] MEDS: TIOTROPIUM BROMIDE 18 MCG INH INH SCH (08:25)
[2017-04-06] MEDS ORDERED: EPINEPHrine HCL (1:1000) 1 MG/ML VIAL ONE (08:35)
[2017-04-06] MEDS ORDERED: MAGNESIUM HYDROXIDE SUSP 30 ML CUP PO PRN (09:00)
--- NOTE | 2017-04-06 09:01 | PD.VS.PN ---
Subjective POD #: 4 Procedure(s): L C-SC bypass, TEVAR for cTBAD Subjective/Hospital Course Pt sitting in chair alert in NAD Pt denies nausea/abdominal/back pain Pt doing well Neuro intact Dressings to lower back and bilat groins dry I/C/D Objective Vitals/I&O Date Time Temp Pulse Resp B/P (MAP) Pulse Ox O2 Delivery O2 Flow Rate FiO2 04/06/17 08:00 107 04/06/17 07:30 20 04/06/17 07:00 98.6 93 20 119/67 (84) 96 04/06/17 07:00 96 Nasal Cannula 3.00 Humidified 04/06/17 07:00 91 04/06/17 06:03 92 04/06/17 05:31 85 04/06/17 04:16 87 04/06/17 03:28 97.4 94 18 135/83 (100) 97 04/06/17 03:28 97 Nasal Cannula 3.00 04/06/17 03:28 92 04/06/17 02:38 90 04/06/17 01:32 92 04/06/17 00:05 96 04/05/17 23:59 99.4 93 19 134/68 (90) 96 04/05/17 23:59 96 Nasal Cannula 3.00 04/05/17 23:59 89 04/05/17 22:00 92 04/05/17 21:00 91 04/05/17 20:00 90 04/05/17 19:45 90 04/05/17 19:45 95 Nasal Cannula 3.00 04/05/17 19:45 97.4 100 18 138/77 (97) 95 04/05/17 18:00 87 04/05/17 17:00 92 04/05/17 16:00 88 04/05/17 15:00 93 Nasal Cannula 3.00 Humidified 04/05/17 15:00 98.0 92 19 128/75 (92) 93 04/05/17 15:00 90 04/05/17 14:39 19 04/05/17 14:00 91 04/05/17 13:00 94 04/05/17 12:00 97 04/05/17 11:00 98.7 105 19 131/82 (98) 96 04/05/17 11:00 100 04/05/17 11:00 96 Nasal Cannula 3.00 Humidified 04/05/17 10:00 115 04/05/17 09:00 111 04/06/17 04/06/17 04/06/17 07:00 15:00 23:00 Intake Total 600 ml Output Total 625 ml Balance -25 ml Exam: GENERAL: Afebrile 62/M A&OX3 NAD GCS15 SKIN: Warm and dry/known abscess to Right shoulder with improved swelling and erythema since yesterday LE warm with motor intact Palpable R DP Triphasic L DP/PT Lower back/Bilat groin dressings I/C/D w/o swelling or hematoma CARDIOVASCULAR: Regular rate and rhythm without murmurs, gallops, or rubs. RESPIRATORY: No accessory muscle use. GASTROINTESTINAL: Abdomen soft, non-tender, nondistended, + flatulence MUSCULOSKELETAL: No cyanosis, or edema. Assessment and Plan Assessment: (1) Thoracic aortic aneurysm Plan POD#4 s/p L C-SC/TEVAR. Neuro intact and looks great Pt tolerating reg diet + flatulence Pt w/o abdominal/back pain Plan Normalize with goal SBP 140-160 PT/OOB ad deanna D/C planning for tomorrow am with ANGEL GARCÍA [facility]/[employer] [phone] Discharge Planning D/C planning Sat AM w/ Lizz Campuzano Apr 06, 2017 09:01
[2017-04-06] MEDS ORDERED: PERC5TAB12 PO (09:08)
--- NOTE | 2017-04-06 09:19 | PD.VS.DC ---
Discharge Summary Admission Date: Apr 02, 2017 at 05:56 Discharge Date: Apr 07, 2017 Admission Diagnosis: (1) Thoracic aortic aneurysm Discharge Diagnosis: (1) Thoracic aortic aneurysm ICD Codes: I71.2 - Thoracic aortic aneurysm, without rupture Brief History from admission Mr Robin is a 62/M patient with a PMH of a chronic type B aortic dissection admitted for repair Procedure(s): L C-SC bypass, TEVAR for cTBAD Significant Findings GENERAL: Afebrile 62/M A&OX3 NAD GCS15 SKIN: Warm and dry/known abscess to Right shoulder with improved swelling and erythema since yesterday LE warm with motor intact Palpable R DP Triphasic L DP/PT Lower back/Bilat groin dressings I/C/D w/o swelling or hematoma CARDIOVASCULAR: Regular rate and rhythm without murmurs, gallops, or rubs. RESPIRATORY: No accessory muscle use. GASTROINTESTINAL: Abdomen soft, non-tender, nondistended, + flatulence MUSCULOSKELETAL: No cyanosis, or edema. Vital Signs Date Time Temp Pulse Resp B/P (MAP) Pulse Ox O2 Delivery O2 Flow Rate FiO2 04/06/17 08:00 107 04/06/17 07:30 20 04/06/17 07:00 98.6 93 20 119/67 (84) 96 04/06/17 07:00 96 Nasal Cannula 3.00 Humidified 04/06/17 07:00 91 04/06/17 06:03 92 04/06/17 05:31 85 04/06/17 04:16 87 04/06/17 03:28 97.4 94 18 135/83 (100) 97 04/06/17 03:28 97 Nasal Cannula 3.00 04/06/17 03:28 92 04/06/17 02:38 90 04/06/17 01:32 92 04/06/17 00:05 96 04/05/17 23:59 99.4 93 19 134/68 (90) 96 04/05/17 23:59 96 Nasal Cannula 3.00 04/05/17 23:59 89 04/05/17 22:00 92 04/05/17 21:00 91 04/05/17 20:00 90 04/05/17 19:45 90 04/05/17 19:45 95 Nasal Cannula 3.00 04/05/17 19:45 97.4 100 18 138/77 (97) 95 04/05/17 18:00 87 04/05/17 17:00 92 04/05/17 16:00 88 04/05/17 15:00 93 Nasal Cannula 3.00 Humidified 04/05/17 15:00 98.0 92 19 128/75 (92) 93 04/05/17 15:00 90 04/05/17 14:39 19 04/05/17 14:00 91 04/05/17 13:00 94 04/05/17 12:00 97 04/05/17 11:00 98.7 105 19 131/82 (98) 96 04/05/17 11:00 100 04/05/17 11:00 96 Nasal Cannula 3.00 Humidified 04/05/17 10:00 115 Hospital Course: Mr Robin is a 62/M patient with a PMH of a chronic type B aortic dissection admitted for repair Pt s/p L C-SC bypass, TEVAR for cTBAD Pt continues to be doing well w/o complications POD 4 Neuro intact Pt w/o abdominal/back pain LE warm w/o motor deficits Pt ambulating well Allergies Coded Allergies Type Severity Reaction Last Updated Verified No Known Allergies 04/02/17 No 04/04/17 04/04/17 04/05/17 04/05/17 04/06/17 04/06/17 06:00 18:00 06:00 18:00 06:00 18:00 Intake Total 1455 ml 480 ml 600 ml Output Total 1900 ml 825 ml 450 ml 625 ml Balance -445 ml -345 ml -450 ml -25 ml Intake Oral 1455 ml 480 ml 600 ml Output Urine Total 1900 ml 825 ml 450 ml 625 ml # Voids 1 # Bowel Movements 0 0 Orders Procedure Category Date Status Time ^ Clamp Unclamp TAD 04/03/17 In Process 14:23 ^ Activity TAD 04/03/17 In Process 14:23 ^ Discontinue TAD 04/03/17 In Process Arterial Line 17:00 Patient Transfer ADMITTING 04/04/17 Transmitted ^ Other Nursing Orders TAD 04/04/17 In Process 07:33 ^ Other Nursing Orders TAD 04/05/17 In Process 01:31 Ondansetron Inj MED 04/05/17 Logged (Zofran Inj) 08:30 Docusate Sodium-Senna MED 04/05/17 In Process (Ronda-Colace) 09:30 Metoprolol Succinate MED 04/05/17 In Process Er (Toprol Xl) 10:15 Cephalexin (Keflex) MED 04/05/17 In Process 14:00 Epinephrine (1:1000) MED 04/06/17 Complete Inj (Adrenalin (1:1 08:35 Magnesium Hydroxide MED 04/06/17 In Process Liq (Milk Of Magnesi 09:00 Attending Discharge DISCHARGE 04/06/17 Transmitted Order Vital Signs Date Time Temp Pulse Resp B/P (MAP) Pulse Ox O2 Delivery O2 Flow Rate FiO2 04/06/17 08:00 107 04/06/17 07:30 20 04/06/17 07:00 98.6 93 20 119/67 (84) 96 04/06/17 07:00 96 Nasal Cannula 3.00 Humidified 04/06/17 07:00 91 04/06/17 06:03 92 04/06/17 05:31 85 04/06/17 04:16 87 04/06/17 03:28 97.4 94 18 135/83 (100) 97 04/06/17 03:28 97 Nasal Cannula 3.00 04/06/17 03:28 92 04/06/17 02:38 90 04/06/17 01:32 92 04/06/17 00:05 96 04/05/17 23:59 99.4 93 19 134/68 (90) 96 04/05/17 23:59 96 Nasal Cannula 3.00 04/05/17 23:59 89 04/05/17 22:00 92 04/05/17 21:00 91 04/05/17 20:00 90 04/05/17 19:45 90 04/05/17 19:45 95 Nasal Cannula 3.00 04/05/17 19:45 97.4 100 18 138/77 (97) 95 04/05/17 18:00 87 04/05/17 17:00 92 04/05/17 16:00 88 04/05/17 15:00 93 Nasal Cannula 3.00 Humidified 04/05/17 15:00 98.0 92 19 128/75 (92) 93 04/05/17 15:00 90 04/05/17 14:39 19 04/05/17 14:00 91 04/05/17 13:00 94 04/05/17 12:00 97 04/05/17 11:00 98.7 105 19 131/82 (98) 96 04/05/17 11:00 100 04/05/17 11:00 96 Nasal Cannula 3.00 Humidified 04/05/17 10:00 115 04/05/17 09:00 111 04/05/17 08:00 105 04/05/17 07:00 95 04/05/17 07:00 97.8 92 20 140/70 (93) 95 04/05/17 07:00 95 Nasal Cannula 3.00 Humidified 04/05/17 06:02 95 04/05/17 05:20 101 04/05/17 04:31 92 04/05/17 03:44 95 Nasal Cannula 3.00 04/05/17 03:44 98.8 91 18 147/80 (102) 95 04/05/17 03:44 95 04/05/17 02:15 93 04/05/17 01:47 94 04/05/17 00:15 99 04/04/17 23:23 99.7 101 19 160/85 (110) 94 04/04/17 23:23 95 Nasal Cannula 3.00 04/04/17 23:23 95 Nasal Cannula 3.00 04/04/17 23:23 97 04/04/17 22:00 98 04/04/17 21:00 98 04/04/17 20:00 90 04/04/17 19:30 98 Nasal Cannula 3.00 04/04/17 19:30 95 04/04/17 19:30 98.3 95 18 148/82 (104) 98 04/04/17 18:00 88 04/04/17 17:00 90 04/04/17 16:00 92 04/04/17 15:45 95 Nasal Cannula 3.00 Humidified 04/04/17 15:45 98.4 87 18 146/78 (100) 96 04/04/17 15:00 92 04/04/17 14:00 88 04/04/17 13:00 84 04/04/17 12:00 88 04/04/17 11:27 96 Nasal Cannula 3.00 Humidified 04/04/17 11:24 98.6 87 18 139/76 (97) 97 04/04/17 11:00 92 04/04/17 10:00 86 04/04/17 09:00 88 04/04/17 09:00 94 Nasal Cannula 3.00 04/04/17 08:00 84 04/04/17 08:00 99 Nasal Cannula 5.00 Humidified 04/04/17 08:00 99 Nasal Cannula 5.00 04/04/17 08:00 98.9 85 18 Automatic Cuff 97 04/04/17 07:00 99.1 87 18 140/83 (102) 97 Arterial Line 04/04/17 07:00 97 Nasal Cannula 5.00 Humidified 04/04/17 07:00 83 04/04/17 03:15 98.9 83 15 159/83 (108) 96 165/67 (99) 04/04/17 03:15 84 04/04/17 03:15 96 Nasal Cannula 5.00 Humidified 04/04/17 03:15 96 Nasal Cannula 5.00 04/03/17 23:21 96 Nasal Cannula 5.00 Humidified 04/03/17 23:21 98.9 106 15 161/81 (107) 96 171/67 (101) 04/03/17 23:21 87 04/03/17 19:21 93 Nasal Cannula 4.00 Humidified 04/03/17 19:21 100.4 89 16 165/93 (117) 93 178/70 (106) 04/03/17 19:00 87 04/03/17 16:03 95 Nasal Cannula 2.00 04/03/17 15:03 99.8 86 20 165/80 (108) 95 04/03/17 15:02 86 04/03/17 12:02 91 Room Air 04/03/17 11:02 98.0 77 17 169/68 (101) 95 04/03/17 11:02 77 Discharge Condition: Good Discharge Disposition: Disch w/ Home Health Serv Discharge Instructions: Activities as tolerated Daily walking regimen encouraged NO driving while on narcotic pain medications No tub baths until incision if fully healed MAY Shower Post op follow up in 3W with a surveillance CTA c/a/p F/U with PCP 1W - abscess R shoulder f/u Call the office to report any new onset fever,chills, abdominal/back pain DO NOT TAKE Hydrocodone and Oxycodone at the same time- Choose one or the other for pain control Lizz GARCÍA [facility] [phone] Any questions or concerns: Call [facility] at [facility] [phone] Lizz Puga Apr 06, 2017 09:19
[2017-04-06] MEDS: GABAPENTIN 300 MG CAP PO SCH (20:18)
[2017-04-06] MEDS: CYCLOBENZAPRINE HCL 10 MG TAB PO SCH (20:19)
[2017-04-06] MEDS: ATORVASTATIN 40 MG TAB PO SCH (20:19)
[2017-04-07] VITALS (8 sets, daily range): BP systolic 120–141; BP diastolic 67–74; PULSE 74–105; RESP 16–18; TEMP 98–99.3; O2SAT 95–98
[2017-04-07] MEDS: CEPHALEXIN MONOHYDRATE 500 MG CAP PO SCH (05:31)
--- NOTE | 2017-04-07 06:29 | PD.VS.PN ---
Subjective POD #: 5 Procedure(s): L C-SC bypass, TEVAR for cTBAD Subjective/Hospital Course Up walking yesterday, jose luis reg diet feels well overall Objective Vitals/I&O Date Time Temp Pulse Resp B/P (MAP) Pulse Ox O2 Delivery O2 Flow Rate FiO2 04/07/17 06:02 105 04/07/17 05:35 74 04/07/17 04:11 79 04/07/17 03:47 98.0 78 16 141/74 (96) 98 04/07/17 03:47 98 Nasal Cannula 3.00 04/07/17 03:47 84 04/07/17 02:08 84 04/07/17 01:10 78 04/07/17 00:10 75 04/06/17 23:12 92 Nasal Cannula 3.00 04/06/17 23:12 98.1 91 16 121/74 (90) 92 04/06/17 23:12 78 04/06/17 22:09 80 04/06/17 21:54 84 04/06/17 21:16 97 Nasal Cannula 3.00 04/06/17 20:15 80 04/06/17 19:41 83 04/06/17 19:29 18 04/06/17 19:25 98.3 77 18 125/72 (89) 97 04/06/17 19:25 97 Nasal Cannula 3.00 04/06/17 18:01 94 04/06/17 17:15 89 04/06/17 17:15 18 04/06/17 16:03 87 04/06/17 15:00 88 04/06/17 15:00 98.7 86 21 133/74 (93) 98 04/06/17 15:00 98 Nasal Cannula 3.00 Humidified 04/06/17 14:01 93 04/06/17 13:00 104 04/06/17 12:00 105 04/06/17 11:00 93 Nasal Cannula 3.00 Humidified 04/06/17 11:00 79 04/06/17 11:00 88 19 116/58 (77) 93 04/06/17 10:00 85 04/06/17 09:40 96 Nasal Cannula 3.00 04/06/17 09:00 87 04/06/17 08:00 107 04/06/17 07:00 98.6 93 20 119/67 (84) 96 04/06/17 07:00 96 Nasal Cannula 3.00 Humidified 04/06/17 07:00 91 04/07/17 04/07/17 04/07/17 07:00 15:00 23:00 Intake Total 480 ml Balance 480 ml Exam: L neck incision ok Neck slightly full/edematous but not tense groins ok neuro intact Assessment and Plan Assessment: (1) Thoracic aortic aneurysm Plan POD#5 s/p L C-SC/TEVAR. ready for d/c today Discharge Planning today Problem Qualifiers (1) Thoracic aortic aneurysm: Qualified Codes: I71.2 - Thoracic aortic aneurysm, without rupture Javy Cherry MD Apr 07, 2017 06:29
[2017-04-07] MEDS: HYDROmorphone HCL 2 MG TAB PO PRN (06:32)
[2017-04-07] MEDS: DOCUSATE SODIUM 50 MG/SENNA 8.6 MG TAB PO SCH (08:07)
[2017-04-07] MEDS: METOPROLOL SUCCINATE 50 MG EXTENDED RELEASE TAB PO SCH (08:07)
[2017-04-07] MEDS: BUDESONIDE-FORMOTEROL 160/4.5 MCG INHALER INH SCH (08:08)
[2017-04-07] MEDS: FAMOTIDINE 20 MG TAB PO SCH (08:08)
[2017-04-07] MEDS: HYDROCHLOROTHIAZIDE 50 MG TAB PO SCH (08:08)
[2017-04-07] MEDS: ASPIRIN EC 81 MG TABEC PO SCH (08:08)
[2017-04-07] MEDS: DOCUSATE SODIUM 100 MG CAP PO SCH (08:08)
[2017-04-07] MEDS: TIOTROPIUM BROMIDE 18 MCG INH INH SCH (08:09)
== END 2017-04-07 11:15 | disposition home health service (06) | DRG 221 ==
LOC: HSDI 05:56 → HCVI 12:29 → HCPC 04-04 08:00
PROVIDERS: ADMIT Surgery; ATTEND Surgery
PROC: 031 Upper Arteries, Bypass (ICD-10-PCS; 2017-04-02)
PROC: 03L43DZ Occlusion of Left Subclavian Artery with Intraluminal Device, Percutaneous Approach (ICD-10-PCS; 2017-04-02)
PROC: B340ZZ3 Ultrasonography of Thoracic Aorta, Intravascular (ICD-10-PCS; 2017-04-02)
PROC: B440ZZ3 Ultrasonography of Abdominal Aorta, Intravascular (ICD-10-PCS; 2017-04-02)
PROC: B44HZZ3 Ultrasonography of Bilateral Lower Extremity Arteries, Intravascular (ICD-10-PCS; 2017-04-02)
PROC: 009U30Z Drainage of Spinal Canal with Drainage Device, Percutaneous Approach (ICD-10-PCS; 2017-04-02)
PROC: 02VX3DZ Restriction of Thoracic Aorta, Ascending/Arch with Intraluminal Device, Percutaneous Approach (ICD-10-PCS; principal; 2017-04-02 08:00)
DX: I71.01 Dissection of thoracic aorta (principal); E66.01 Morbid (severe) obesity due to excess calories; I10 Essential (primary) hypertension; I25.10 Atherosclerotic heart disease of native coronary artery without angina pectoris; E78.5 Hyperlipidemia, unspecified; G89.29 Other chronic pain; J44.9 Chronic obstructive pulmonary disease, unspecified; K21.9 Gastro-esophageal reflux disease without esophagitis; Z68.34 Body mass index [BMI] 34.0-34.9, adult; G47.33 Obstructive sleep apnea (adult) (pediatric); Z87.891 Personal history of nicotine dependence
CPT/HCPCS: 63741; 71010; 77003; 80048; 85025; 85027; 86850; 86900; 86901; 93005; 94664; 99152; C1755; J0131; J0171; J0690; J1644; J2250; J2270; J2310; J2720; J2930; J3010; J3480; J7060; J7120; J7644; Q9967